=== PATIENT | male | born 1950 | race Caucasian/White ===

== ENCOUNTER 2017-04-22 06:59 | Day surgery (SDC) | payer MEDICARE ==
[2017-04-21 13:54] VITALS: BMI 27.8
[2017-04-22 08:13] LABS: Hematocrit 40.2 % (42.0-52.0)
[2017-04-22] MEDS ORDERED: Oxymetazoline HCl 0.05% ( 15 ML ) ONE ×2 (08:20→09:07)
[2017-04-22] MEDS ORDERED: Fentanyl 250 MCG/5 ML VIAL ONE (08:32)
[2017-04-22] MEDS ORDERED: Midazolam HCl 2 mg/2 ml Vial ONE (08:32)
[2017-04-22 08:33] LABS: Anion Gap 12 mmol/L (10-20); BUN (Urea Nitrogen) 21 mg/dL (8.4-25.7); Calc. Creatinine Clearance 89 mL/min (70-130); Calcium 9.4 mg/dL (7.8-10.44); Carbon Dioxide 22 mmol/L (23-31); Chloride 111 mmol/L (98-107); Estimated GFR-MDRD 72
[2017-04-22] MEDS ORDERED: Lidocaine 2% w/Epinephrine 1:200K 20 ML VIAL ONE (09:07)
[2017-04-22] MEDS ORDERED: Glycopyrrolate 0.2 MG/ML 5 ML SYRINGE ONE (09:40)
[2017-04-22] MEDS ORDERED: Propofol 200 MG/20 ML VIAL ONE (09:40)
[2017-04-22] MEDS ORDERED: Dexamethasone 20 MG/5 ML VIAL ONE (09:40)
[2017-04-22] MEDS ORDERED: Ondansetron HCl/PF 4 MG/2 ML Vial ONE (09:40)
[2017-04-22] MEDS ORDERED: Lidocaine 2% PF 10 ML AMP (For Epidural Use) ONE (09:40)
[2017-04-22] MEDS ORDERED: Fentanyl 100 MCG/2 ML VIAL ONE (10:40)
[2017-04-22] MEDS ORDERED: Ondansetron HCl/PF 4 MG/2 ML Vial IVP PRN (11:03)
[2017-04-22] MEDS ORDERED: Promethazine HCl 25 MG/ML VIAL IM/IV PRN (11:03)
[2017-04-22] MEDS ORDERED: Non-Formulary Medication 1 EACH PO PRN (11:03)
[2017-04-22] MEDS ORDERED: Hydrocodone-Acetamin 15 ML UDCUP ONE (11:49)
--- NOTE | 2017-04-22 12:16 | OP ---
PREOPERATIVE DIAGNOSES: 1. Chronic rhinosinusitis. 2. Bilateral nasal polyposis. 3. Bilateral inferior turbinate hypertrophy. POSTOPERATIVE DIAGNOSES: 1. Chronic rhinosinusitis. 2. Bilateral nasal polyposis. 3. Bilateral inferior turbinate hypertrophy. PROCEDURES: 1. Bilateral endoscopic sinus surgery, total ethmoidectomies. 2. Bilateral endoscopic sinus surgery, maxillary antrostomies. 3. Bilateral endoscopic sinus surgery, frontal sinusotomy. 4. Bilateral endoscopic sinus surgery, sphenoidotomies. 5. Bilateral inferior turbinate submucosal resection. SURGEON: Dr. Raul Randolph. ESTIMATED BLOOD LOSS: 50 mL COMPLICATIONS: None. ANESTHESIA: GETA. PROCEDURE IN DETAIL: The patient was taken to the operating room and placed supine on the table. G eneral endotracheal anesthesia was obtained by the anesthesia staff. The tube was secured in the le ft lower lip. The patient was then placed in the beach chair position. Afrin pledgets were placed in the nasal cavity, as the patient was prepped and draped for standard nasal procedure. Following this, the Afrin pledgets were removed. The 0 degree scope was advanced into the nasal cavity. A 1% lidocaine with 1:100,000 epinephrine was injected into the inferior turbinates and the middle turbi nates bilaterally as well as the lateral nasal wall. Following this, the middle turbinates were gen tly medialized with a [place] elevator. The uncinate process was gently fractured anteriorly with a b all-ended probe. Multiple polyps were noted to be obstructing this uncinate area and maxillary sinu s ostia. These polyps were removed using the straight microdebrider. The microdebrider and upbitin g Blakesley forceps were used to remove the uncinate process bilaterally. Following this, the ethmo idal bulla was punctured on its medial and inferior aspect and was removed using the microdebrider. Multiple polyps were found throughout the ethmoidal sinuses. The grand lamella was identified and was punctured in the posterior ethmoidal cells and the ethmoidal sinuses were then opened from poste rior to anterior direction in mucosal-sparing technique. Following this, the sphenoid sinuses were approached through the ethmoidectomy and were gently widened medially and inferiorly with the microd ebrider. Following this, the maxillary sinus ostia was identified using the ball-ended probe and wa s gently widened using the straight Blakesley forceps and a microdebrider. Following this, the 45-d egree scope and the 40-degree microdebrider blade was then used to further open the frontal recess c ells bilaterally as well as identify the frontal sinus ostia and resect tissue opening the frontal s inus ostia bilaterally. Following this, the nasal cavity was irrigated. MeroPacks were placed. Th e submucosal microdebrider was inserted into the anterior and inferior aspect of the inferior turbin ates and submucosal resection was performed of the anterior and inferior portions of the inferior tu rbinates. Inferior turbinates were then outfractured with a [place] elevator. The patient tolerated the procedure well.
--- NOTE | 2017-04-22 13:25 | EKG ---
Test Reason : PREOP Blood Pressure : / mmHG Vent. Rate : 058 BPM Atrial Rate : 058 BPM P-R Int : 184 ms QRS Dur : 084 ms QT Int : 404 ms P-R-T Axes : 028 065 040 degrees QTc Int : 396 ms Sinus bradycardia Otherwise normal ECG No previous ECGs available Confirmed by DR. Samuel VAZQUEZ ([id number]) on 04/22/2017 1:24:41 PM Referred By: MARLEN Confirmed By:DR. Samuel VAZQUEZ
== END 2017-04-22 12:17 | disposition home or self-care (01) ==
LOC: SDC 06:59
PROVIDERS: ATTEND Otolaryngology Plastic Surgery within the Head & Neck
PROC: 099R8ZZ Drainage of Left Maxillary Sinus, Via Natural or Artificial Opening Endoscopic (ICD-10-PCS; principal; 2017-04-22)
PROC: 099Q8ZZ Drainage of Right Maxillary Sinus, Via Natural or Artificial Opening Endoscopic (ICD-10-PCS; 2017-04-22)
PROC: 09TV8ZZ Resection of Left Ethmoid Sinus, Via Natural or Artificial Opening Endoscopic (ICD-10-PCS; 2017-04-22)
PROC: 09TU8ZZ Resection of Right Ethmoid Sinus, Via Natural or Artificial Opening Endoscopic (ICD-10-PCS; 2017-04-22)
PROC: 09BT8ZZ Excision of Left Frontal Sinus, Via Natural or Artificial Opening Endoscopic (ICD-10-PCS; 2017-04-22)
PROC: 09BS8ZZ Excision of Right Frontal Sinus, Via Natural or Artificial Opening Endoscopic (ICD-10-PCS; 2017-04-22)
PROC: 09CX8ZZ Extirpation of Matter from Left Sphenoid Sinus, Via Natural or Artificial Opening Endoscopic (ICD-10-PCS; 2017-04-22)
PROC: 09CW8ZZ Extirpation of Matter from Right Sphenoid Sinus, Via Natural or Artificial Opening Endoscopic (ICD-10-PCS; 2017-04-22)
PROC: 09TL8ZZ Resection of Nasal Turbinate, Via Natural or Artificial Opening Endoscopic (ICD-10-PCS; 2017-04-22)
DX: J33.8 Other polyp of sinus (principal); J32.9 Chronic sinusitis, unspecified; J34.3 Hypertrophy of nasal turbinates; M06.9 Rheumatoid arthritis, unspecified; Z79.899 Other long term (current) drug therapy; Z79.51 Long term (current) use of inhaled steroids; Z79.1 Long term (current) use of non-steroidal anti-inflammatories (NSAID); Z91.048 Other nonmedicinal substance allergy status; Z98.1 Arthrodesis status; Z98.890 Other specified postprocedural states
CPT/HCPCS: 36415; 80048; 85014; 85018; 88304; 93005; 93010; 96374; J1100; J2001; J2250; J2405; J2704; J3010